=== PATIENT | female | born 1970 | race Caucasian/White ===

== ENCOUNTER 2020-05-11 13:42 | Emergency (ER) | payer MEDICAID ==
[~2020-05-11] VITALS: Ht 165.1 cm; Wt 63.5 kg
[2020-05-11 15:30] VITALS: BP 114/61
== END 2020-05-11 16:17 | disposition left against medical advice (07) ==
LOC: ER 13:42
DX: Z76.0 Encounter for issue of repeat prescription (principal); Z53.21 Procedure and treatment not carried out due to patient leaving prior to being seen by health care provider

== ENCOUNTER 2020-05-11 17:32 | Emergency (ER) | payer MEDICAID ==
[~2020-05-11] VITALS: Ht 165.1 cm; Wt 63.5 kg
[2020-05-11 22:46] LABS: Basophils # (auto) 0 10 ^3/uL (0-0.2); Basophils % (auto) 0.4 % (0.0-2.0); Eosinophils # (auto) 0.2 10 ^3/uL (0-0.8); Eosinophils % (auto) 1.5 % (0.0-7.0); Hematocrit 37.9 % (36.0-46.0); Hemoglobin 13.1 g/dL (12.2-16.2); Lymphocytes # (auto) 1.8 10 ^3/uL (0.4-5.4); Lymphocytes % (auto) 12.8 % (10.0-50.0); Mean Corpuscular Hemoglobin 32.1 pg (28.0-32.0); Mean Corpuscular Hgb Conc. 34.5 g/dL (32.0-36.0); Mean Corpuscular Volume 93.1 fL (80.0-100.0); Monocytes # (auto) 1.1 10 ^3/uL (0-1.3); Monocytes % (auto) 7.9 % (0.0-12.0); Neutrophils # (auto) 10.8 10 ^3/uL (1.6-8.6); Neutrophils % (auto) 77.4 % (37.0-80.0); Platelet Count (auto) 384 10^3/uL (140-450); Red Blood Cells 4.07 10^6/uL (4.0-5.20); Red Cell Distribution Width 13.9 % (11.8-14.3); White Blood Cell 13.9 10^3/uL (4.4-10.8)
[2020-05-11 23:04] LABS: Alanine Aminotransferase 15 U/L (13-56); Anion Gap 6 (5-15); Blood Alcohol < 3.0 mg/dL (0-5); Blood Urea Nitrogen 13 mg/dL (7-18); Calcium 8.8 mg/dL (8.5-10.1); Carbon Dioxide 21 mmol/L (21-32); Chloride 111 mmol/L (98-107); Glucose 98 mg/dL (74-106); Potassium 3.4 mmol/L (3.5-5.1); Sodium 138 mmol/L (136-145)
[2020-05-11 23:07] LABS: Alkaline Phosphatase 67 U/L (45-117); Aspartate Aminotransferase 16 U/L (15-37); BUN/Creatinine Ratio 21.7; Bilirubin, Total 0.5 mg/dL (0.2-1.0); GFR African American 136 mL/min; GFR Non-African American 112 mL/min; Total Protein 7.2 g/dL (6.4-8.2)
[2020-05-11 23:53] LABS: Acetaminophen < 2.0 ug/mL (10-30); Salicylate 4.6 mg/dL (2.8-20.0)
[2020-05-12] MEDS ORDERED: HYDROcodone-ACET 10/325MG TAB PO ONE (00:30)
[2020-05-12 04:28] LABS: Urine Bacteria FEW /hpf (None Seen); Urine Blood Negative /uL (Negative); Urine Mucus FEW (None Seen); Urine Specific Gravity 1.016 (1.001-1.035); Urine WBC 5 /hpf (0 - 5)
[2020-05-12 04:49] LABS: Amphetamine Screen, Urine NEGATIVE (NEGATIVE); Barbiturate Scree,Urine NEGATIVE (NEGATIVE); Benzodiazephine Screen, Urine NEGATIVE (NEGATIVE); Cannabinoid Screen, Urine POSITIVE (NEGATIVE)
[2020-05-12 04:56] LABS: Alcohol, Urine < 3.0 mg/dL (0-10); Cocaine Screen, Urine NEGATIVE (NEGATIVE); Opiate Scree,Urine NEGATIVE (NEGATIVE); Phencyclidine Screen, Urine NEGATIVE (NEGATIVE)
[2020-05-12] MEDS ORDERED: LORazepam 2MG/ML-1ML VIAL IM ONE (09:45)
[2020-05-12] MEDS ORDERED: LORazepam 0.5 MG TAB PO ONE (20:45)
[2020-05-12] MEDS ORDERED: traZODone HCL 50 MG TAB PO ONE (22:45)
[2020-05-12] MEDS ORDERED: LITHIUM CARBONATE 300 MG TAB PO ONE (22:45)
[2020-05-12] MEDS ORDERED: traZODone HCL 50 MG TAB ONE (23:04)
[2020-05-13] MEDS ORDERED: IBUPROFEN 600 MG TAB PO PRN ×2 (10:15→10:30)
[2020-05-13] MEDS ORDERED: NICOTINE 21MG/24 HR TOPICAL PATCH TD ONE (12:30)
[2020-05-13] MEDS: ZIPRASIDONE 60 MG PO SCH (18:21)
[2020-05-13] MEDS: LITHIUM CARBONATE 300 MG TAB PO SCH (21:59)
[2020-05-13] MEDS: MIRTAZAPINE 30 MG TAB PO SCH (22:00)
[2020-05-13] MEDS: traZODone HCL 50 MG TAB PO PRN (23:45)
[2020-05-14] MEDS ORDERED: NICOTINE 21MG/24 HR TOPICAL PATCH TD ONE (14:30)
[2020-05-14] MEDS: ZIPRASIDONE 60 MG PO SCH (18:07)
[2020-05-14] MEDS ORDERED: IBUPROFEN 600 MG TAB PO ONE (18:15)
[2020-05-14] MEDS: LITHIUM CARBONATE 300 MG TAB PO SCH (22:24)
[2020-05-14] MEDS: traZODone HCL 50 MG TAB PO PRN (22:25)
[2020-05-14] MEDS: MIRTAZAPINE 30 MG TAB PO SCH (22:25)
[2020-05-15 09:30] VITALS: BP 121/72
--- NOTE | 2020-05-15 09:43 | NUR ---
Spoke with patient, she agreed to go to [facility] for help, provided crisis center info as well as a list of NA/AA meetings in her area.
== END 2020-05-15 13:20 | disposition home or self-care (01) ==
LOC: ER 17:33
DX: F32.9 Major depressive disorder, single episode, unspecified (principal); F23 Brief psychotic disorder; R45.851 Suicidal ideations
CPT/HCPCS: 36415; 80053; 80307; 80320; 80329; 81001; 85025; 96372; 99285; J2060